=== PATIENT | female | born 1990 | race Caucasian/White ===

== ENCOUNTER 2018-04-01 22:30 | Outpatient (CLI) | payer MEDICAID ==
[2018-04-01 23:03] LABS: APPEARANCE,URINE SLIGHTLY-CLOUDY; BILIRUBIN,URINE NEGATIVE (NEGATIVE); COLOR,URINE YELLOW; GLUCOSE, URINE NEGATIVE (NEGATIVE); KETONES,URINE NEGATIVE (NEGATIVE); LEUKOCYTE ESTERASE,URINE TRACE (NEGATIVE); NITRITE,URINE NEGATIVE (NEGATIVE); PROTEIN,URINE NEGATIVE (NEGATIVE); URINE SPECIFIC GRAVITY 1.008; UROBILINOGEN,URINE NEGATIVE mg/dL (<2.0)
[2018-04-01 23:14] LABS: URINE AMPHETAMINES SCREEN NEGATIVE; URINE BARBITURATES SCREEN NEGATIVE; URINE BENZODIAZEPINES SCREEN NEGATIVE; URINE COCAINE SCREEN NEGATIVE; URINE MARIJUANA (THC) SCREEN NEGATIVE; URINE METHADONE SCREEN NEGATIVE; URINE PHENCYCLIDINE SCREEN NEGATIVE
--- NOTE | 2018-04-02 01:24 | RADIOLOGY REPORT (SQ) ---
EXAM DESCRIPTION: US LIMITED COMPLETED DATE/TME: 04/02/2018 00:00 CLINICAL HISTORY: 28 years, Female, bleeding; eval for abruption, cervical length COMPARISON: None. TECHNIQUE: Transabdominal and transvaginal images of the pelvis LIMITATIONS: None. FINDINGS: The cervix is closed and measures 2.92 cm in length. A single live intrauterine is identified with a heart rate of 132 bpm. Fetus is in the cephalic position. The placenta is anterior. No evidence of placenta previa or placental abruption. IMPRESSION: Single live intrauterine . 2010 [facility]GLOB[facility] [employer]o [employer]- All Rights Reserved
--- NOTE | 2018-04-02 01:38 | Non Stress Test Report ---
Non Stress Test Datetime Report Generated by CPN: 04/02/2018 01:38 DEMOGRAPHIC Test Number: 1 EGA NST: 34.2 INDICATION Indication for Study: Ordered by Provider URINE RESULTS Urine Protein, NST: Negative Urine Ketones - NST: Negative Urine Glucose - NST: Negative Urine Blood - NST: Positive MONITORING Monitor Explained: Monitor Explained; Test Explained; Patient Verbalized Understanding Time on Monitor: 04/01/2018 23:13 Time off Monitor: 04/01/2018 23:33 NST Duration: 20 NST INTERVENTIONS NST Interventions: PO Hydration; Reposition Patient Physician Notified NST: Dr. Hassan BABY A: [id number] BABY A Movement : Present Contraction Frequency : None FHR Baseline : 120 Accelerations : 15X15 Decelerations : None Variability : Moderate 6-25bpm NST Review: Meets Criteria for Reactive NST NST Review and Verified By : MARYAM Escudero NST Results: Reactive NST REPORT Report Trigger: Send Report
== END 2018-04-02 01:33 | disposition home or self-care (01) ==
LOC: LC 22:30
PROVIDERS: ATTEND Obstetrics & Gynecology Gynecology
PROC: 4A1HXCZ Monitoring of Products of Conception, Cardiac Rate, External Approach (ICD-10-PCS; principal; 2018-04-01)
DX: O46.93 Antepartum hemorrhage, unspecified, third trimester (principal); O47.03 False labor before 37 completed weeks of gestation, third trimester; Z3A.34 34 weeks gestation of pregnancy
CPT/HCPCS: 76815; 80307; 81001